=== PATIENT | female | born 1940 | race Caucasian/White ===

== ENCOUNTER 2018-02-22 16:45 | Emergency (ER) | payer OTHER, MEDICAID ==
[~2018-02-22] VITALS: Wt 60.3 kg
[~2018-02-22 16:45] MED LIST: ALLOPURINOL300 MG PO; AMOXICILLIN500 MG PO; ANTIVERT/2525 M1 PO; ANTIVERT12.5 MG PO; ANTIVERT25 MG PO; ASPIRIN FOR AR325 MG PO; AUGMENTIN 875 M1 TAB PO; BACTRIM DS 8001 TA1 PO; CAL-CITRATE150 MG PO; CARAFATE1 G1 PO; CIPRODEX 0.3%-7.5 ML OT; CIPROFLOXACIN500 MG PO; CLARITIN10 MG PO; COLCHICINE0.6 MG PO; COZAAR50 MG PO; CRAN-PLUS1 CAP PO; Carafate1 GM/10 ML PO; DIFLUCAN100 MG PO; DIFLUCAN150 MG PO; ELIDEL1% TP; EPA FISH OIL1000 MG PO; FERROUS FUMARA324 MG PO; FISH OIL 10001000 MG PO; FLONASE 0.05% 121 EA NAS; GARLIC PO; GINKO BILOBA60 MG PO; HYDROCODONE BIT1 T11 PO; INDOCIN25 MG PO; INDOCIN50 MG PO; KEFLEX500 MG PO; LIPITOR20 MG PO; LISINOPRIL AND1 TA1 PO; LOMOTIL 0.025 M1 TA1 PO; LOPURIN300 MG PO; LOTRISONE 0.05%1 CRE TP; MACROBID100 M1 PO; MIRALAX POWDER255 GM PO; Meclizine25 MG PO; NAPROSYN375 MG PO; NATURE'S BLEND F1 MG PO; NEXIUM40 MG PO; OSCAL/D,OYSTER250 MG PO; PERCOCET 325 MG1 TA2 PO; PREDNICOT20 MG PO; PRILOSEC20 MG PO; PROAIR HFA0.09 MG/AC INH; PYRIDIUM200 MG PO; TOBREX OPHTH S2.5 ML OPH; TORADOL10 MG PO; TRIAMCINOLONE0.1% TP; ULTRAM50 MG PO; VICODIN 5/500 505 MG PO; VITAMIN D2000 IU PO; ZOCOR40 MG PO; ZOFRAN ODT4 MG SL; ZOFRAN4 MG PO; ZYRTEC10 MG PO; [UNRECOGNIZED DRUG - REMARK]
[2018-02-22 16:47] VITALS: BP 138/60
== END 2018-02-22 17:22 | disposition home or self-care (01) ==
LOC: ED 16:45
DX: H57.8 Other specified disorders of eye and adnexa (principal); Z79.899 Other long term (current) drug therapy